=== PATIENT | male | born 1980 | race Caucasian/White ===

== ENCOUNTER 2017-01-16 09:00 | Emergency (ER) | payer OTHER ==
[2017-01-16] MEDS ORDERED: NO MEDICATIONS (09:06)
== END 2017-01-16 13:16 | disposition home or self-care (01) ==
LOC: SED 09:00
DX: S01.511A Laceration without foreign body of lip, initial encounter (principal); Z88.0 Allergy status to penicillin; W50.0XXA Accidental hit or strike by another person, initial encounter; Y92.009 Unspecified place in unspecified non-institutional (private) residence as the place of occurrence of the external cause
CPT/HCPCS: 12051; 90715; 99283